=== PATIENT | male | born 1970 | race Caucasian/White ===

== ENCOUNTER 2024-12-28 09:02 | Emergency (ER) | payer SELFPAY ==
[~2024-12-28] VITALS: Ht 167.6 cm; Wt 64.0 kg
[2024-12-28 09:07] VITALS: BP 170/92; PULSE 63; RESP 16; TEMP 36.9; O2SAT 100
== END 2024-12-28 11:00 | disposition left against medical advice (07) ==
LOC: ER 09:02
DX: R11.0 Nausea (principal); Z53.21 Procedure and treatment not carried out due to patient leaving prior to being seen by health care provider
CPT/HCPCS: 99283